=== PATIENT | female | born 1990 | race Caucasian/White ===

== ENCOUNTER 2021-12-12 13:40 | Inpatient (IN) ==
[2021-12-12 15:06] LABS: Basophils # (auto) 0.02 K/uL (0-0.2); Basophils % (auto) 0.2 %; Eosinophils # (auto) 0.07 K/uL (0-0.5); Eosinophils % (auto) 0.8 %; Hemoglobin 12.2 g/dL (12.0-16.0); Immature Granulocytes # (auto) 0.03 K/uL (0.00-0.02); Immature Granulocytes % (auto) 0.4 %; Lymphocytes # (auto) 1.62 K/uL (1.2-3.4); Lymphocytes % (auto) 18.9 %; Mean Corpuscular Hemoglobin 31.6 pg (25-34); Mean Corpuscular Hgb Conc 33.9 g/dL (32-36); Mean Corpuscular Volume 93.3 fL (80-100); Mean Platelet Volume 10.9 fL (7.4-10.4); Monocytes # (auto) 0.62 K/uL (0.11-0.59); Monocytes % (auto) 7.2 %; Neutrophils # (auto) 6.21 K/uL (1.4-6.5); Neutrophils % (auto) 72.5 %; Platelet Count 205 K/uL (130-400); RDW Coefficient of Variation 13.2 % (11.5-14.5); RDW Standard Deviation 44.8 fL (36.4-46.3); Red Blood Count 3.86 M/uL (4.2-5.4); White Blood Count 8.57 K/uL (4.8-10.8)
[2021-12-12 15:28] LABS: Alanine Aminotransferase 11 U/L (7-52); Albumin Level 3.6 gm/dl (3.4-5.0); Alkaline Phosphatase 191 U/L (34-104); Anion Gap 9 (3-11); Aspartate Aminotransferase 16 U/L (13-39); BUN Creatinine Ratio 24.5 (10-20); Bilirubin,Total 0.3 mg/dl (0.2-1.0); Blood Urea Nitrogen 13 mg/dl (6-23); Calcium 8.9 mg/dl (8.5-10.1); Carbon Dioxide 20 mmol/L (21-32); Chloride 107 mmol/L (98-107); Est GFR (African American) 147.7 ml/min; Est GFR (Non-African American) 127.4 ml/min; Glucose 82 mg/dl (70-99(Fasting)); Potassium 4.1 mmol/L (3.5-5.1); Sodium 136 mmol/L (136-145); Total Protein 6.2 gm/dl (6.0-8.3)
[2021-12-12] MEDS ORDERED: OXYTOCIN 30 UNITS/500 ML BAG IV PRN ×2 (17:11→18:16)
--- NOTE | 2021-12-12 18:16 | History & Physical Report ---
Date of Service December 12, 2021 Assessment & Plan (1) Gestational hypertension: (2) 40 weeks gestation of : (3) Encounter for induction of labor: Plan: admit, iv, labs. given her dilation, plan pitocin. wants to eat first. will order regular tray. labs were normal. Admission and Anticipated Discharge Date Admission Date: December 12, 2021 History of Present Illness Chief Complaint: gestational hypertension Primary Care Provider: Stalin Johnson, DO 31yo at 40 0/7 weeks presents to L&D from office with elevated bps. Over course of evaluation here she does meet criteria for gestational hypertension. Neg urine protein. No funk or visual change. No ruq pain. Hungry. PNC c/b 1. h/o CKC and LEEP PNL rh pos, ri, gbs neg OBH: g1 GYNH: no stds Allergies Allergy/AdvReac Type Severity Reaction Status Date / Time No Known Allergies Allergy Verified 12/06/21 10:35 Home Medications Medication Instructions Recorded Confirmed Type prenat.vits,cuauhtemoc,zbg-flnw-ebnrh PO 04/24/21 12/06/21 History omeprazole [Prilosec] PO 10/31/21 12/06/21 History Patient History Medical History (Updated 12/12/21 @ 18:15 by Sara Choe MD, FACOG) EMBER III (cervical intraepithelial neoplasia grade III) with severe dysplasia Reports 2018 History of chicken pox Surgical History (Updated 05/03/21 @ 12:38 by Shavonne Ware MD) H/O foot surgery H/O wisdom tooth extraction Hx of tonsillectomy S/P cone biopsy of cervix [facility] 2018 at [place], reports normal annual paps ending 2020 and plan for q3yr cotest S/P LEEP 2017 Family History (Updated 04/24/21 @ 13:22 by Breann Almaguer, DUNCAN) Aunt Breast cancer Grandmother (Maternal) Breast cancer Diabetes Kidney disease Mother Melanoma Other Colorectal cancer Hypertension Denies family history of Ovarian cancer Prostate cancer Social History (Updated 04/24/21 @ 13:24 by Breann Almaguer, DUNCAN) Smoking Status: Never smoker Second Hand Exposure: No; Hx Alcohol Use: No Hx Substance Use: No Preferred Language: Yi Communication Ability: Effective Visual Impairment: No Limitations Hearing Ability: Normal 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 Other Information That Helps Us Care for You: No Feels Safe at Home: Yes Safety Concerns: Feels Safe At This Time Assistive Devices: None Review of Systems as per Subjective / HPI Physical Exam Constitutional: WD/WN, vitals as above Respiratory: normal respiratory effort, lungs clear to auscultation Cardiovascular: Rate/Rhythm: regular rate and regular rhythm Gastrointestinal (Abdomen): soft gravid nt efw 7-8# Musculoskeletal: no edema nontender calves Neurologic: grossly normal Psychiatric: A+Ox3, euthymic affect Genitourinary: Manual OB Exam: + cervical dilation (3), + cervical effacement 90% and + station -2 OB Exam Monitor Tracing: + external FHT monitor used, + external uterine monitor used (irreg), + category I and + normal FHT variability Results & Data ([facility]) Vital Signs (Past 12 Hours) Vital Signs Temp Pulse Resp BP 12/12/21 17:07 77 137/93 12/12/21 15:25 98.1 F 20 12/12/21 14:33 79 141/92 H 12/12/21 14:17 77 154/91 H 12/12/21 14:02 87 136/90 Code Status & VTE Plan VTE Prophylaxis Plan VTE Prophylaxis will be ordered: No Coding Level of Care Code None Diagnoses Gestational hypertension O13.9 40 weeks gestation of Z3A.40 Encounter for induction of labor Z34.90
[2021-12-12] MEDS: LACTATED RINGER'S 1,000 ML IV PRN ×2 (19:15→23:01)
--- NOTE | 2021-12-12 21:38 | Labor Progress Brief Note ---
Date of Service December 12, 2021 Subjective feeling some ctx. Assessment & Plan (1) 40 weeks gestation of : (2) Encounter for induction of labor: (3) Gestational hypertension: Plan: c/w pit, see how arom helps labor pattern. fhts categ 1. epidural when desires. Admission and Anticipated Discharge Date Admission Date: December 12, 2021 Physical Exam Constitutional: WD/WN, vitals as above Genitourinary: Manual OB Exam: + cervical dilation 3 cm, + cervical effacement 80%, + station -2 and + amniotic fluid (arom) clear OB Exam Monitor Tracing: + external FHT monitor used, + external uterine monitor used (q2), + category I and + normal FHT variability Results & Data ([facility]) Vital Signs (Past 12 Hours) Vital Signs Temp Pulse Resp BP 12/12/21 20:57 72 135/78 12/12/21 19:03 69 135/77 12/12/21 19:00 98.6 F 18 12/12/21 17:07 77 137/93 12/12/21 15:25 98.1 F 20 12/12/21 14:33 79 141/92 H 12/12/21 14:17 77 154/91 H 12/12/21 14:02 87 136/90 Coding Level of Care Code None Diagnoses 40 weeks gestation of Z3A.40 Encounter for induction of labor Z34.90 Gestational hypertension O13.9
[2021-12-12] MEDS ORDERED: BUPIVACAINE 0.25% 30 ML VIAL ONE (22:41)
[2021-12-12] MEDS ORDERED: SODIUM CHLORIDE 0.9% INJ 10 ML VIAL ONE (22:41)
[2021-12-12] MEDS ORDERED: fentaNYL citrate 100 MCG/2 ML VIAL ONE (22:41)
[2021-12-12] MEDS ORDERED: ePHEDrine sulfate 50 MG/ML AMP ONE (22:41)
[2021-12-12] MEDS ORDERED: fentaNYL 2MCG/ML ROPIVACAINE 1.25MG/ML 100 ML BAG EPI ONE (22:42)
--- NOTE | 2021-12-12 23:12 | Anesthesiology Consultation ---
Date of Service December 12, 2021 Assessment & Plan (1) Encounter for pre-operative examination: Chart Review Chart Review: Acceptable Risk for Labor Epidural Consults Requested none ASA ASA2 Proposed Anesthesia Anesthesia Type: Labor Epidural Risk / Benefits Reviewed With: PT / POA / Parent / Guardian, Accepts Plan and Informed Consent Obtained History Height/Weight Height: 5 ft 7 in Weight: 97.976 kg Allergies Allergy/AdvReac Type Severity Reaction Status Date / Time No Known Allergies Allergy Verified 12/12/21 18:34 Medications Home Medications Medication Instructions Recorded Confirmed Last Taken omeprazole 10 mg capsule,delayed 10 mg PO DAILY 12/12/21 12/12/21 12/12/21 08:00 release prenat.vits,cuauhtemoc,khr-haif-udjes 1 tab PO DAILY 12/12/21 12/12/21 12/11/21 21:00 Active Medications Generic Name Dose Route Start Last Admin Trade Name Freq PRN Reason Stop Dose Admin Lactated Ringer's 1,000 mls @ 125 mls/hr 12/12/21 17:11 12/12/21 23:01 Lr IV 12/14/21 17:10 999 mls/hr .Q8H PRN Administration L&D Protocol Protocol Oxytocin 30 units in 500 mls @ 11 mls/hr 12/12/21 18:16 12/12/21 22:25 Pitocin IV 12/14/21 18:15 0.66 units/hr .Q24H PRN 11 mls/hr Labor Induction/Augmentation Titration Protocol 0.66 UNITS/HR Past Medical History Medical History EMBER III (cervical intraepithelial neoplasia grade III) with severe dysplasia Reports 2018 History of chicken pox Exercise / Class Metabolic Activity II 4-5 Yardwork/Stairs/Walk up hill Past Family History Family History Aunt Breast cancer Grandmother (Maternal) Breast cancer Diabetes Kidney disease Mother Melanoma Other Colorectal cancer Hypertension Denies family history of Ovarian cancer Prostate cancer Past Surgical History Surgical History H/O foot surgery H/O wisdom tooth extraction Hx of tonsillectomy S/P cone biopsy of cervix [facility] 2018 at [place], reports normal annual paps ending 2020 and plan for q3yr cotest S/P LEEP 2017 Past Anesthesia History No Hx of Anesthesia Complications and No Family Hx of Anesthesia Complications History of PONV No Hx of PONV and No Hx of Motion Sickness Social History Smoking Status: Never smoker Hx Alcohol Use: No Hx Substance Use: No substance use type: does not use Physical Exam Vital Signs Last Vital Signs Temp 98.6 F 12/12/21 19:00 Pulse 75 12/12/21 22:27 Resp 18 12/12/21 19:00 BP 140/82 12/12/21 22:27 ENMT Mouth: no dentition abnormality Thyromental Distance: > or= 3.5 Finger Breadths Mallampati Class: II Neck normal visual inspection Respiratory normal respiratory effort Auscultation: lungs clear to auscultation bilaterally Cardiovascular Rate/Rhythm: regular rate and regular rhythm Testing Laboratory Results 12/12/21 14:46 12/12/21 14:46
[2021-12-12] MEDS ORDERED: NALBUPHINE HCL INJ 10 MG/ML AMP IV PRN (23:29)
[2021-12-12] MEDS ORDERED: fentaNYL 2MCG/ML ROPIVACAINE 1.25MG/ML 100 ML BAG EPI PRN (23:29)
[2021-12-12] MEDS ORDERED: ONDANSETRON INJ 2 MG/ML 2 ML VIAL IV PRN (23:29)
[2021-12-12] MEDS ORDERED: diphenhydrAMINE 50 MG/ML VIAL IV PRN (23:29)
[2021-12-12] MEDS ORDERED: NALOXONE HCL 0.4 MG/1 ML VIAL/CARP IV PRN (23:29)
[2021-12-12] MEDS ORDERED: ePHEDrine sulfate 50 MG/ML AMP IV PRN (23:29)
[2021-12-12] MEDS ORDERED: NALOXONE HCL 1 MG in SODIUM CHLORIDE 0.9% 1000ML 1,000 ML IV PRN (23:29)
[2021-12-13] MEDS ORDERED: SODIUM CHLORIDE 0.9% 250 ML IV PRN (01:30)
[2021-12-13] MEDS ORDERED: LACTATED RINGER'S 500 ML IV ONE (01:35)
[2021-12-13] MEDS: LACTATED RINGER'S 1,000 ML IV PRN (01:44)
[2021-12-13 01:59] LABS: Hematocrit (blood only) 29.9 % (37-47)
[2021-12-13] MEDS ORDERED: MIDAZOLAM HCL 1 MG/ML 2ML VIAL ONE (01:59)
[2021-12-13] MEDS ORDERED: fentaNYL citrate 100 MCG/2 ML VIAL ONE (01:59)
[2021-12-13] MEDS ORDERED: ONDANSETRON INJ 2 MG/ML 2 ML VIAL ONE (02:04)
[2021-12-13] MEDS ORDERED: ATROPINE SULFATE 0.1 MG/ML 10ML SYR IV PRN (02:31)
[2021-12-13] MEDS ORDERED: ePHEDrine sulfate 50 MG/ML AMP IV PRN (02:31)
[2021-12-13] MEDS ORDERED: fentaNYL citrate 100 MCG/2 ML VIAL IV PRN (02:31)
[2021-12-13] MEDS ORDERED: ONDANSETRON INJ 2 MG/ML 2 ML VIAL IV PRN (02:31)
--- NOTE | 2021-12-13 02:32 | Anesthesiology Progress Note ---
Date of Service December 13, 2021 Anesthesia Post Procedure Vital Signs Vital Signs: Temp Pulse Resp BP Pulse Ox Pulse Ox 12/13/21 02:29 96 H 110/59 L 12/13/21 02:28 89 98 12/13/21 01:43 98 H 98 12/13/21 01:41 95 H 113/58 L 12/13/21 01:40 102 H 93 12/13/21 01:38 95 H 92/48 L 96 12/13/21 01:36 107 H 85/47 L 12/13/21 01:33 102 H 99 12/13/21 01:31 108 H 92/45 L 12/13/21 01:30 102 H 111/45 L 12/13/21 01:28 99 H 96 12/13/21 01:27 102 H 94/54 L 12/13/21 01:23 98 H 97 12/13/21 01:18 104 H 97 12/13/21 01:16 111 H 116/60 12/13/21 01:13 113 H 97 12/13/21 01:11 110 H 128/64 12/13/21 01:08 112 H 96 12/13/21 01:05 111 H 120/60 12/13/21 01:03 119 H 129/67 96 12/13/21 00:58 114 H 96 12/13/21 00:54 107 H 143/61 H 12/13/21 00:53 113 H 96 12/13/21 00:48 119 H 96 12/13/21 00:47 141 H 142/71 H 12/13/21 00:43 95 H 96 12/13/21 00:38 86 142/73 H 96 12/13/21 00:35 84 90 12/13/21 00:33 76 98 12/13/21 00:28 90 97 12/13/21 00:26 88 153/65 H 90 12/13/21 00:23 72 97 12/13/21 00:20 71 127/58 L 89 L 12/13/21 00:18 70 94 12/13/21 00:14 76 90 12/13/21 00:13 77 97 12/13/21 00:08 73 162/102 H 97 12/13/21 00:04 91 H 150/70 H 12/13/21 00:03 88 100 12/13/21 00:00 72 151/72 H 12/12/21 23:58 71 158/70 H 99 12/12/21 23:55 79 166/74 H 12/12/21 23:53 65 99 12/12/21 23:51 71 148/78 H 12/12/21 23:48 59 L 155/80 H 99 12/12/21 23:45 62 152/73 H 12/12/21 23:43 68 154/76 H 98 12/12/21 23:40 84 137/65 12/12/21 23:38 73 99 12/12/21 23:36 67 161/81 H 12/12/21 23:33 71 161/82 H 98 12/12/21 23:32 99 12/12/21 23:30 78 153/74 H 12/12/21 23:28 72 98 12/12/21 23:27 73 155/75 H 12/12/21 23:24 78 150/72 H 94 12/12/21 23:23 74 97 12/12/21 23:18 94 H 95 12/12/21 23:13 89 100 12/12/21 22:27 75 140/82 12/12/21 20:57 72 135/78 12/12/21 19:03 69 135/77 12/12/21 19:00 98.6 F 18 12/12/21 17:07 77 137/93 12/12/21 15:25 98.1 F 20 12/12/21 14:33 79 141/92 H 12/12/21 14:17 77 154/91 H 12/12/21 14:02 87 136/90 Pain Intensity Abdomen: Pain Intensity: 5 Transfer of Care Handoff Completed per policy Notes Mental Status: alert / awake / arousable and participated in evaluation Patient Amnestic to Procedure: Yes Nausea / Vomiting: adequately controlled Pain: adequately controlled Airway Patency, RR, SpO2: stable & adequate BP & HR: stable & adequate Hydration State: stable & adequate Anesthetic Complications: no major complications apparent and Pt Satisfied with anesthetic care
--- NOTE | 2021-12-13 02:32 | Anesthesia Procedure Note ---
Date of Service December 13, 2021 Anesthesia Post Epidural Note Vital Signs Vital Signs: Temp Pulse Resp BP Pulse Ox 98.6 F 96 H 18 110/59 L 98 12/12/21 19:00 12/13/21 02:29 12/12/21 19:00 12/13/21 02:29 12/13/21 02:28 Pain Intensity Abdomen: Pain Intensity: 5 Notes Mental Status: alert / awake / arousable and participated in evaluation Nausea / Vomiting: adequately controlled Pain: adequately controlled Airway Patency, RR, SpO2: stable & adequate BP & HR: stable & adequate Hydration State: stable & adequate Neuraxial Anesthesia: was administered and sensory block is resolving Anesthetic Complications: no major complications apparent and Pt Satisfied with anesthetic care Epidural: Removed without complications and With tip intact
[2021-12-13] MEDS ORDERED: DIPHTHERIA/TETANUS/PERTUSSIS 0.5 ML SYR/VIAL IM ONE (02:41)
[2021-12-13] MEDS ORDERED: BENZOCAINE 20% AER SPR 82.5 GM CAN EXT PRN (02:41)
[2021-12-13] MEDS ORDERED: HYDROCORTISONE ACETATE 25 MG SUPP PR PRN (02:41)
[2021-12-13] MEDS ORDERED: bisacodyL 10 MG SUPP PR PRN (02:41)
[2021-12-13] MEDS ORDERED: oxyCODONE/ACETAMINOPHEN 5mg/325mg TAB PO PRN (02:41)
[2021-12-13] MEDS ORDERED: ACETAMINOPHEN 325 MG TAB PO PRN (02:41)
[2021-12-13] MEDS ORDERED: miSOPROStoL 200 MCG TAB PR ONE (02:41)
[2021-12-13] MEDS ORDERED: OXYTOCIN 30 UNITS/500 ML BAG IV PRN (02:41)
[2021-12-13] MEDS ORDERED: CARBOPROST TROMETHAMINE 250 MCG/ML AMPUL IM ONE ×2 (02:41→04:25)
[2021-12-13] MEDS ORDERED: OXYTOCIN 20 UNITS in LACTATED RINGER'S 1,000 ML IV SCH (02:45)
--- NOTE | 2021-12-13 02:46 | Delivery Summary ---
Vaginal Delivery Summary Date of Service December 13, 2021 Vaginal Delivery Summary and 3rd Degree LAC (partial) The patient dilated to complete and pushed to deliver a viable female infant Apgars 8 and 9 via over partial 3rd degree perineal laceration. Mouth and nose bulb suctioned at perineum. Shoulders and body delivered with ease. was vigorous and crying at . Cord clamped at 30 seconds of life and infant to maternal abdomen where the cord was then doubly clamped and cut. Placenta delivered spontaneously and intact, three-vessel cord. Hemostasis not achieved with dilute pitocin and uterine massage and drainage of the bladder for approximately 300 cc under sterile conditions. Bimanual massage began followed by rectal cytotec 800mcg. BP taken and elevated and im hemabate readied and given after sweep of uterus with no evidence of retained placenta. Fundus tone seemingly improved and with inspection, bilateral sulcal tears with active bleeding noted and repairs begun. The left sulcal tear extended to left labia and 4-0 vicryl begun to be used to reapproximate this area. The 3-0 vicryl used at apex of left sulcal tear and brought down to hymenal area but tissue very friable and difficult to reapproximate. Additional 3-0 vicryl used to attempt to approximate right sided sulcal tear but this tear extended anterior under pubic arch. Difficult to visualize due to cervix and retractors used and area attempted to be reapproximated but bleeding persisted. Partial 3rd degree perineal laceration repaired in layers with 2-0 and 3-0 vicryl. Persistent bleeding noted and cervix inspected at length, lower uterine segment still with collected clots. Right apex of sulcal tear with evidence of bleeding and sutures attempted to be placed but visualization poor. Packing used in vagina and after 5-10min was saturated with continued bright red bleeding. Patient counseled that EUA needed at this point to better ascertain areas of bleeding and areas in need of repair. Consent reviewed and signed. Anesthesia aware. Will move to OR. Suspect uterine tone now improved and that persistent bleeding from lacerations but did prepare patient that I cannot be sure. At this point 2nd iv line had been placed and LR bolusing as BP at one point 85/40 and pulse 105 and pt c/o being dizziness. T&C x 2 and stat hgb ordered. Vaginal packing replaced while waiting to move to OR. EBL 1000 cc. Baby stable recovery and with FOB. [facility] Vaginal Delivery Charge Delivery Type Details: and 3rd Degree LAC (partial)
--- NOTE | 2021-12-13 02:55 | Operative Report ---
PG Post Operative Report Pre & Post Diagnosis Operation Date: 12/13/21 01:45 Preop Diagnosis: hemorrhage s/p vaginal delivery, vaginal sulcal lacerations Postop Diagnosis: same, cervical bleeding/laceration I identified the patient and participated in the time-out.: Yes Procedure Operation Date: 12/13/21 01:45 <No data on this case meets the specified criteria> 1. EUA 2. Repair of vaginal lacerations 3. Control of cervical bleeding. Surgeon Sara Choe MD, FACOG Delivery And Mail Sorter RN Estimated Blood Loss 5 Findings Consistent with Post-Op Diagnosis (anterior aspect of right sulcal tear with active bleeding, small area of bleeding on anterior cervix--raw tissue not clear laceration, left hymenal region with active bleeding. uterine tone adequate) Fluids 300cc Specimens none Drains none Anesthesia Type Labor Epidural Complications none Disposition Accompanied Patient To Recovery: No Disposition: L&D Indications 31yo with hemorrhage and bleeding lacerations with need for eua and better visualization for repairs. Recommended OR evaluation and treatment. See Vaginal delivery summary for more detail. Description of Procedure Patient taken to OR and moved to table. Placed in dorsal lithotomy and packing removed. Anesthesia present to aid in sedation/relaxation. Labor epidural still providing anesthesia. Prepped and draped and using retractors each compartment of vagina inspected. Active bleeding sites noted and 3-0 vicryl sutures used in figure of eight fashion to control bleeding. Areas of active bleeding as noted above. Cervical bleeding site on anterior lip stitched with figure of eight suture of 3-0 vicryl. bleeding improving. Observed and bleeding continued to be improved and procedure terminated. I attest to the content of the Intraoperative Record and any orders documented therein. Any exceptions are noted below. 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 )
[2021-12-13] MEDS: ceFAZolin 2000MG 2,000 MG/15 ML SYR IV SCH ×3 (04:06→20:17)
[2021-12-13] MEDS: DOCUSATE SODIUM 100 MG CAP PO SCH ×3 (08:37→22:22)
[2021-12-13] MEDS: PRENATAL VITAMIN 1 TAB PO SCH (08:37)
[2021-12-13 09:00] LABS: Hematocrit (blood only) 23.1 % (37-47); Hemoglobin 7.9 g/dL (12.0-16.0); Mean Corpuscular Hgb Conc 34.2 g/dL (32-36); Mean Corpuscular Volume 93.5 fL (80-100); Mean Platelet Volume 10.4 fL (7.4-10.4); Platelet Count 200 K/uL (130-400); RDW Standard Deviation 44.5 fL (36.4-46.3); Red Blood Count 2.47 M/uL (4.2-5.4); White Blood Count 18.64 K/uL (4.8-10.8)
[2021-12-13] MEDS: IBUPROFEN 600 MG TAB PO PRN ×2 (09:35→17:34)
[2021-12-13] MEDS: FERROUS SULFATE 325 MG TAB PO SCH (17:34)
[2021-12-14] MEDS: IBUPROFEN 600 MG TAB PO PRN ×4 (00:15→21:09)
[2021-12-14 07:34] LABS: Hematocrit (blood only) 20.5 % (37-47); Hemoglobin 6.8 g/dL (12.0-16.0)
[2021-12-14] MEDS: FERROUS SULFATE 325 MG TAB PO SCH (07:59)
[2021-12-14] MEDS: PRENATAL VITAMIN 1 TAB PO SCH (07:59)
[2021-12-14] MEDS: DOCUSATE SODIUM 100 MG CAP PO SCH ×2 (07:59→23:04)
--- NOTE | 2021-12-14 08:06 | Obstetrical Progress Note ---
Date of Service December 14, 2021 Assessment & Plan (1) Encounter for care and examination after delivery: Plan: 31yo PPD 1 s/p at 40 weeks. Complicated by 3rd degree tear with sulcal tearing requiring repair in the OR. -Continue routine care -Vitals reviewed- HDS, afebrile -GBS neg -Encourage ambulation, regular diet -Pain control with ibuprofen, acetaminophen, oxy PRN -Encourage -Hgb 6.8 this morning likely from PPH but patient asymptomatic and stable, will repeat CBC tomorrow morning -continue iron supplementation -f/u in 6 weeks with OB after discharge (2) Gestational hypertension: (3) Vaginal tear resulting from childbirth: Admission and Anticipated Discharge Date Admission Date: December 12, 2021 Supervising Physician Co-Signing Physician Notes Resident Physician Supervision Note: I interviewed and examined the patient. Discussed with Dr. Castanon and agree with findings and plan as documented in the note. Any exceptions or clarifications are listed here: Will keep patient unti PPD#2 to allow observation given low Hgb. Not unexpected given PPH / severe obstetric laceration requiring operative repair, and no transfusion recommended at this time due to patient's asymptomatic state and pulse <100. Oral iron, reassess Hgb tomorrow to ensure it's not dropping further, and hopefully D/C in AM. Documented By: Libby Gonzales MD, FACOG Subjective Ambulation: yes Voiding: yes Passing Gas: yes BM: yes Diet Tolerance: regular, denies N/V Lochia: small Feeding Type: Current Pain Level(1-10): 1 Review of Systems Review of Systems: Denies fevers/chills. Denies dyspnea, cough. Denies chest pain. Denies dysuria. Denies headache. Denies back pain. Physical Exam Physical Exam: General: Alert, oriented, no acute distress Cardiac: Regular rate and rhythm, normal S1, S2. No murmurs appreciated. Respiratory: Clear to auscultation b/l with good air flow entry, symmetric chest rise and fall. No wheezes or crackles. No increased work of breathing or accessory muscle use Abdomen: Soft, mild fundal tenderness, nondistended. Fundus firm and palpable at 2cm below umbilicus. No guarding or rebound. Skin: No rashes or lesions Extremities: Warm, dry, well-perfused with capillary refill <2s b/l. Minimal lower extremity edema, erythema or swelling. Negative Hector's sign b/l. Results & Data ([facility]) Vital Signs (Past 12 Hours) Vital Signs Temp Pulse Resp BP Pulse Ox 12/14/21 03:30 36.5 C 94 H 16 125/70 98 12/14/21 00:20 36.8 C 104 H 16 112/72 99 12/13/21 20:50 36.6 C 101 H 18 127/74 97 Resident Activity Tracking Resident Involvement: Resident Care Provided Care Provided: OB Delivery
[2021-12-14] MEDS ORDERED: bisacodyL 5 MG TABEC PO SCH (20:00)
[2021-12-15] MEDS: IBUPROFEN 600 MG TAB PO PRN ×2 (04:30→08:35)
[2021-12-15 06:49] LABS: Hematocrit (blood only) 21.7 % (37-47); Mean Corpuscular Hemoglobin 30.8 pg (25-34); Mean Corpuscular Hgb Conc 32.3 g/dL (32-36); Mean Corpuscular Volume 95.6 fL (80-100); Platelet Count 203 K/uL (130-400); RDW Coefficient of Variation 14.4 % (11.5-14.5); RDW Standard Deviation 49.5 fL (36.4-46.3); Red Blood Count 2.27 M/uL (4.2-5.4); White Blood Count 10.72 K/uL (4.8-10.8)
[2021-12-15 07:22] LABS: ALC (manual) 1.96 K/uL (1.2-3.4); ANC (manual) 8.39 K/uL (1.4-6.5); Eosinophils # (manual) 0.18 K/uL (0-0.5); Eosinophils % (manual) 1.7 %; Lymphocytes # (manual) 1.96 K/uL (1.2-3.4); Lymphocytes % (manual) 18.3 %; Monocytes # (manual) 0.18 K/uL (0.11-0.59); Monocytes % (manual) 1.7 %; Neutrophils # (manual) 8.39 K/uL (1.4-6.5); Neutrophils % (manual) 78.3 %; RBC Morphology Unremarkable
[2021-12-15] MEDS: FERROUS SULFATE 325 MG TAB PO SCH (08:35)
[2021-12-15] MEDS: PRENATAL VITAMIN 1 TAB PO SCH (08:35)
[2021-12-15] MEDS: DOCUSATE SODIUM 100 MG CAP PO SCH (08:35)
--- NOTE | 2021-12-15 09:39 | Obstetrical Progress Note ---
Date of Service December 15, 2021 Assessment & Plan (1) Encounter for care and examination after delivery: hemoglobin 7.0 this morning. will send home on iron daily plus PNV follow up for BP check this week discharge to home Subjective Ambulation: ambulating normally Voiding: no voiding problems Passing Gas:: Yes Diet Tolerance:: regular diet Lochia:: Small Feeding Type:: breast feeding doing well this morning. no lightheadedness or dizziness with ambulation. no PET symptoms. Review of Systems All systems reviewed & are unremarkable except as noted in HPI & below Physical Exam Constitutional WD/WN, vitals as above Psychiatric A+Ox3, euthymic affect Genitourinary OB Exam Abdomen: + fundal height Fundus: + firm and + relation to umbilicus (3 below) Results & Data ([facility]) Vital Signs (Past 12 Hours) Vital Signs Temp Pulse Resp BP Pulse Ox 12/15/21 04:20 98.6 F 80 16 130/82 98 12/14/21 23:25 98.1 F 88 16 126/77 98
== END 2021-12-15 12:45 | disposition home or self-care (01) | DRG 807 ==
LOC: OPB 13:40 → 4S1 13:41 → 4E2 12-13 05:02

== ENCOUNTER 2023-10-03 19:05 | Inpatient (IN) ==
[2023-10-03] MEDS ORDERED: OXYTOCIN 30 UNITS/NSS 30 UNITS/500 ML BAG IV PRN (19:17)
[2023-10-03] MEDS ORDERED: LIDOCAINE 1% LOCAL 20 ML VIAL INFIL PRN (19:17)
--- NOTE | 2023-10-03 19:27 | Labor Progress Brief Note ---
Date of Service October 03, 2023 Subjective 33yo at 40w with SROM followed by onset of painful contractions. Small VB c/w bloody show. Good FM. Vertex yesterday on US in office. Assessment & Plan (1) Normal labor: Plan SROM and early labor. Vtx presentation on exam. Exp mgmt, pitocin prn, epidural on request. Physical Exam Genitourinary: /-1 SROM copious clear fluid FHT Cat 1 Dortches irregular / too soon to know pattern Results & Data Vital Signs (Past 12 Hours) Vital Signs Temp Pulse Resp BP 10/03/23 19:17 98.1 F 96 H 18 166/79 H Coding Level of Care Code None Diagnoses Normal labor O80; Z37.9
[2023-10-03] MEDS: LACTATED RINGER'S 1,000 ML IV PRN (19:37)
[2023-10-03 20:16] LABS: Hematocrit (blood only) 36.4 % (37.0-47.0); Hemoglobin 12.5 g/dl (12.0-16.0); Mean Corpuscular Hemoglobin 31.3 pg (25.0-34.0); Mean Corpuscular Hgb Conc 34.3 g/dL (32.0-36.0); Mean Corpuscular Volume 91.2 fL (80.0-100.0); Mean Platelet Volume 11.2 fL (9.4-12.4); Platelet Count 195 K/uL (130-400); RDW Coefficient of Variation 12.9 % (11.5-14.5); RDW Standard Deviation 42.4 fL (36.4-46.3); Red Blood Count 3.99 M/uL (4.20-5.40); White Blood Count 8.58 K/ul (4.8-10.8)
[2023-10-03] MEDS ORDERED: LIDOCAINE 2% MPF LOCAL 5 ML VIAL EPI PRN (20:26)
[2023-10-03] MEDS ORDERED: fentANYL 2 MCG/ML BUPIVacaine 0.125%-NSS 100ML BAG EPI PRN (20:26)
[2023-10-03] MEDS ORDERED: BUPIVACAINE 0.25% PF 30 ML VIAL EPI PRN (20:26)
[2023-10-03] MEDS ORDERED: NALBUPHINE HCL 5 MG in SYRINGE 0 ML IV PRN (20:26)
[2023-10-03] MEDS ORDERED: ONDANSETRON INJ 2 MG/ML 2 ML VIAL IV PRN (20:26)
[2023-10-03] MEDS ORDERED: diphenhydrAMINE 50 MG/ML VIAL IV PRN (20:26)
[2023-10-03] MEDS ORDERED: SODIUM CHLORIDE 0.9% PF INJ 10 ML VIAL EPI PRN (20:26)
[2023-10-03] MEDS ORDERED: ROPIVACAINE 0.5% PF 5 MG/ML 20 ML VIAL EPI PRN (20:26)
[2023-10-03] MEDS ORDERED: fentaNYL citrate PF 100 MCG/2 ML VIAL EPI PRN (20:26)
[2023-10-03] MEDS ORDERED: NALOXONE HCL 0.4 MG/1 ML VIAL/CARP IV PRN (20:26)
[2023-10-03] MEDS ORDERED: ePHEDrine sulfate 50 MG/ML AMP IV PRN (20:26)
[2023-10-03] MEDS ORDERED: NALOXONE HCL 1 MG in SODIUM CHLORIDE 0.9% 1,000 ML IV PRN (20:26)
--- NOTE | 2023-10-03 20:29 | Anesthesiology Consultation ---
Date of Service October 03, 2023 Assessment & Plan (1) Encounter for pre-operative examination: Chart Review Chart Review: Patient NOT seen in Pre Admission Testing and Acceptable Risk for Labor Epidural Consults Requested none History Height/Weight Height: 5 ft 7 in Weight: 101.151 kg Allergies Allergy/AdvReac Type Severity Reaction Status Date / Time No Known Drug Allergies Allergy Unknown Verified 10/02/23 11:30 Medications Home Medications Medication Instructions Recorded Confirmed Last Taken prenat.vits,cuauhtemoc,mvz-wxfl-ubazt 1 tab PO DAILY 12/12/21 10/03/23 10/03/23 fexofenadine 180 mg tablet 180 mg PO DAILY 02/17/23 10/03/23 10/03/23 (Shellie Allergy) omeprazole magnesium 20 mg 20 mg PO DAILY 06/09/23 10/03/23 10/03/23 tablet,delayed release (Prilosec OTC) Active Medications Generic Name Dose Route Start Last Admin Trade Name Freq PRN Reason Stop Dose Admin Lactated Ringer's 1,000 mls @ 125 mls/hr 10/03/23 19:17 10/03/23 20:21 Lr IV 10/05/23 19:16 125 mls/hr .Q8H PRN Infusion L&D Protocol Protocol Past Medical History Medical History FH: mitral regurgitation Vaginal tear resulting from childbirth History of gestational hypertension Encounter for induction of labor EMBER III (cervical intraepithelial neoplasia grade III) with severe dysplasia Reports 2018 History of chicken pox Exercise / Class Metabolic Activity II 4-5 Yardwork/Stairs/Walk up hill Past Family History Family History Aunt Breast cancer Grandmother (Maternal) Diabetes Kidney disease Breast cancer Mother Melanoma Father Heart murmur Mitral valve regurgitation Other Colorectal cancer Hypertension Denies family history of Ovarian cancer Prostate cancer Past Surgical History Surgical History S/P cone biopsy of cervix [facility] 2018 at [place], reports normal annual paps ending 2020 and plan for q3yr cotest S/P LEEP 2017 Hx of tonsillectomy H/O wisdom tooth extraction H/O foot surgery (~2017) Social History Smoking Status: Never smoker Do You Dip or Chew Tobacco: No Hx Alcohol Use: No Hx Substance Use: No substance use type: does not use Physical Exam Vital Signs Last Vital Signs Temp 36.7 C 10/03/23 19:24 Pulse 74 10/03/23 20:45 Resp 18 10/03/23 19:24 BP 145/77 H 10/03/23 20:45 Pulse Ox 97 10/03/23 20:44 Testing Laboratory Results 10/03/23 19:56
[2023-10-03] MEDS: BUPIVACAINE 0.25% PF 30 ML VIAL ONE (20:48)
[2023-10-03] MEDS: fentaNYL citrate PF 100 MCG/2 ML VIAL ONE (20:48)
[2023-10-03] MEDS: LIDOCAINE 2%/EPINEPHRINE 1:200,000 20 ML PF ONE (20:48)
[2023-10-03] MEDS: fentANYL 2 MCG/ML BUPIVacaine 0.125%-NSS 100ML BAG ONE (20:54)
[2023-10-03] MEDS: OXYTOCIN 30 UNITS/NSS 30 UNITS/500 ML BAG IV PRN (23:16)
[2023-10-03] MEDS: ePHEDrine sulfate 50 MG/ML AMP ONE (23:53)
[2023-10-03] MEDS: SODIUM CHLORIDE 0.9% PF INJ 10 ML VIAL ONE (23:53)
--- NOTE | 2023-10-04 02:04 | Delivery Summary ---
Vaginal Delivery Summary Date of Service October 04, 2023 Vaginal Delivery Summary DIAGNOSES: 1. Salazar intrauterine at 40w1d gestation. 2. Spontaneous onset of labor. 3. Group B Streptococcus Neg. PROCEDURE: Spontaneous vaginal delivery and repair of second degreee lacera tion. SURGEON: Libby Gonzales MD. PLATE AND FRAME FILTER OPERATOR: None. ESTIMATED BLOOD LOSS: 400 mL. COMPLICATIONS: None. PLACENTA: Spontaneous and intact with a 3-vessel cord. DISPOSITION: Stable to labor and delivery. DESCRIPTION: The patient pushed well and brought the head to in DOA position. The infant's head was allowed to deliver with contraction force and no further active pushing, with the perineum protected during this time. There was one loose nuchal cord. The shoulders and body delivered without any difficulty, and the infant was placed on the maternal abdomen. It was vigorous and moving all extremities, and making respiratory efforts. The cord was doubly clamped by the MD and then cut. The placenta delivered spontaneously and was noted to be intact and with a 3VC. The cervix, vagina and perineum were examined and were found to have along the prior perineal scar line, re-creating a 2nd degree laceration, which was repaired in the usual manner with vicryl suture. The fundus was firm and lochia minimal immediately after delivery. [facility] Vaginal Delivery Charge Vaginal Delivery Codes: 80235 global code for the antepartum, delivery, and post-
[2023-10-04] MEDS ORDERED: HYDROCORTISONE ACETATE 25 MG SUPP PR PRN (03:06)
[2023-10-04] MEDS ORDERED: OXYTOCIN 30 UNITS/NSS 30 UNITS/500 ML BAG IV PRN (03:06)
[2023-10-04] MEDS: IBUPROFEN 600 MG TAB PO ONE (03:17)
--- NOTE | 2023-10-04 07:01 | Anesthesia Procedure Note ---
Date of Service October 04, 2023 Anesthesia Post Epidural Note Vital Signs Vital Signs: Temp Pulse Resp BP Pulse Ox 36.4 C L 105 H 18 113/59 L 97 10/04/23 02:02 10/04/23 03:58 10/04/23 03:58 10/04/23 03:58 10/04/23 01:54 Notes Mental Status: alert / awake / arousable and participated in evaluation Patient Amnestic to Procedure: No Nausea / Vomiting: adequately controlled Pain: adequately controlled Airway Patency, RR, SpO2: stable & adequate BP & HR: stable & adequate Hydration State: stable & adequate Neuraxial Anesthesia: was administered and sensory block is resolving Anesthetic Complications: no major complications apparent and Pt Satisfied with anesthetic care Epidural: Removed without complications and With tip intact
[2023-10-04] MEDS: PRENATAL VITAMIN 1 TAB PO SCH (07:37)
[2023-10-04] MEDS: BENZOCAINE 20% SPRY 85 APPLN/85 GM CAN EXT PRN (07:37)
[2023-10-04] MEDS: DOCUSATE SODIUM 100 MG CAP PO SCH (07:37)
[2023-10-04] MEDS: IBUPROFEN 600 MG TAB PO PRN (07:38)
[2023-10-04] MEDS: BUPIVACAINE 0.25% PF 30 ML VIAL EPI STA (10:37)
[2023-10-04] MEDS: fentaNYL citrate PF 100 MCG/2 ML VIAL EPI STA (10:38)
[2023-10-04] MEDS: DIPHTHER/TETAN/PERTUS Vaccine (Tdap, Adol/Adult) 0.5mL IM ONE (10:38)
[2023-10-04] MEDS: LIDOCAINE 2%/EPINEPHRINE 1:200,000 20 ML PF EPI STA (10:38)
[2023-10-04] MEDS: SODIUM CHLORIDE 0.9% PF INJ 10 ML VIAL EPI STA (10:38)
[2023-10-04] MEDS: ACETAMINOPHEN 325 MG TAB PO PRN (13:47)
--- NOTE | 2023-10-05 04:38 | Obstetrical Progress Note ---
Date of Service October 05, 2023 Assessment & Plan (1) Encounter for assessment: Plan 33 y/o PPD#1: Eating well, voiding well, ambulating well Vitals reviewed, WNL Pain well controlled with Tylenol/Motrin Routine post care - OOB, ambulation, diet progression as tolerated Will have 6 week follow up with Dr. Gonzales Subjective Ambulation: ambulating normally Voiding: no voiding problems Passing Gas:: Yes Diet Tolerance:: regular diet Lochia:: Moderate Feeding Type:: breast feeding pain well controlled with Tylenol/Motrin Review of Systems -Denies fever or chills -Denies dyspnea, chest pain, or palpitations -Denies breast pain -Denies dysuria -Denies headache or changes in vision Physical Exam General: Alert and oriented. No acute distress Cardiac: Regular rate and rhythm, no murmurs appreciated Respiratory: Lungs clear to auscultation bilaterally, No increased work of breathing Abdominal: Soft, non-tender, non-distended. Bowel sounds present. Uterus: Uterine fundus firm, palpable below umbilicus Extremities: No lower extremity edema, calves non-tender bilaterally Results & Data Vital Signs (Past 12 Hours) Vital Signs Temp Pulse Resp BP Pulse Ox O2 Del Method 10/05/23 03:28 36.6 C 88 20 124/79 98 Room Air 10/05/23 00:05 36.6 C 89 20 135/75 96 Room Air 10/04/23 20:48 36.4 C L 87 18 126/77 97 Room Air Resident Activity Tracking Resident Involvement: Resident Care Provided Care Provided: OB Delivery
[2023-10-05 06:30] LABS: Hematocrit (blood only) 30.2 % (37.0-47.0); Hemoglobin 9.8 g/dl (12.0-16.0); Mean Corpuscular Hemoglobin 30.4 pg (25.0-34.0); Mean Corpuscular Hgb Conc 32.5 g/dL (32.0-36.0); Mean Corpuscular Volume 93.8 fL (80.0-100.0); Mean Platelet Volume 10.7 fL (9.4-12.4); Platelet Count 148 K/uL (130-400); RDW Coefficient of Variation 13.2 % (11.5-14.5); RDW Standard Deviation 44.6 fL (36.4-46.3); Red Blood Count 3.22 M/uL (4.20-5.40); White Blood Count 10.39 K/ul (4.8-10.8)
[2023-10-05] MEDS ORDERED: bisacodyL 5 MG TABEC PO SCH (20:00)
[2023-10-06] MEDS ORDERED: bisacodyL 10 MG SUPP PR PRN (03:06)
== END 2023-10-05 15:05 | disposition home or self-care (01) | DRG 807 ==
LOC: OPB 19:05 → 4S1 19:06 → 4E1 10-04 07:45